=== PATIENT | female | born 1950 | race Caucasian/White ===

== ENCOUNTER 2023-03-06 16:45 | Observation (INO) ==
--- NOTE | 2023-03-06 16:53 | DR.SOBA ---
HPI Time Seen Time Seen by Provider: 03/06/23 16:52 Complaints Chief Complaint Doctors Comments: 5-year-old female presents for evaluation. Was diagnosed with pulmonary emboli 2 weeks ago. Currently on Xarelto and aspirin. Presents with exertional dyspnea over the past few days. Not coughing much. Has been running some fever and chills. Has comfort of both legs, with some swelling, not worse than usual. Did fall and hit her head few days ago. Does have a headache of the right side. No report of nausea, vomiting or diarrhea. No urinary symptoms. Does have a history of CHF in the past. Reviewed Nurses Notes Reviewed: Yes Source History Provided: Patient and Family Member PMH PMH Past Medical History: Anxiety Past Medical History Comment: h/o PEs. Past Surgical History: No (UNSURE , LONG AGO) Surgical History: Cholecystectomy and Hysterectomy Social History Does patient currently use any type of tobacco product: No Alcohol Use: None Do you use any recreational Drugs:: No ROS Review of Systems Constitutional: No Symptoms Reported Eyes: No Symptoms Reported ENTM: No Symptoms Reported Respiratoy: Short of Breath (With exertion) Cardiovascular: No Symptoms Reported Gastrointestinal/Abdominal: No Symptoms Reported Genitourinary: No Symptoms Reported Neurological: Headache Musculoskeletal: No Symptoms Reported Integumentary: No Symptoms Reported Hematologic/Lymphatic: No Symptoms Reported All Other Systems: Reviewed and Negative PE Vital Signs Vitals: Vital Signs Temperature 98.4 F Pulse Rate 85 Pulse Rate 58 Pulse Rate 127 Pulse Rate 87 Pulse Rate 54 Pulse Rate 58 Pulse Rate 66 Pulse Rate 57 Pulse Rate 58 Pulse Rate 58 Pulse Rate 101 Pulse Rate 109 Pulse Rate 55 Pulse Rate 65 Pulse Rate 60 Pulse Rate 61 Pulse Rate 63 Pulse Rate 58 Pulse Rate 58 Pulse Rate 58 Pulse Rate 58 Pulse Rate 57 Respiratory Rate 37 Respiratory Rate 26 Respiratory Rate 23 Respiratory Rate 39 Respiratory Rate 29 Respiratory Rate 27 Respiratory Rate 22 Respiratory Rate 22 Respiratory Rate 19 Respiratory Rate 22 Respiratory Rate 23 Respiratory Rate 36 Respiratory Rate 25 Respiratory Rate 21 Respiratory Rate 21 Respiratory Rate 24 Respiratory Rate 21 Respiratory Rate 25 Respiratory Rate 24 Respiratory Rate 24 Respiratory Rate 20 Blood Pressure 89/44 Blood Pressure 83/40 Blood Pressure 88/47 Blood Pressure 99/49 Blood Pressure 98/47 Blood Pressure 77/33 Blood Pressure 90/44 Blood Pressure 103/51 Blood Pressure 103/49 Blood Pressure 94/51 Blood Pressure 92/45 Blood Pressure 107/50 Blood Pressure 84/43 Blood Pressure 78/39 Blood Pressure 73/34 Blood Pressure 90/42 O2 Sat by Pulse Oximetry 99 O2 Sat by Pulse Oximetry 98 O2 Sat by Pulse Oximetry 98 O2 Sat by Pulse Oximetry 99 O2 Sat by Pulse Oximetry 99 O2 Sat by Pulse Oximetry 96 O2 Sat by Pulse Oximetry 86 O2 Sat by Pulse Oximetry 98 O2 Sat by Pulse Oximetry 99 O2 Sat by Pulse Oximetry 98 O2 Sat by Pulse Oximetry 100 O2 Sat by Pulse Oximetry 100 O2 Sat by Pulse Oximetry 97 O2 Sat by Pulse Oximetry 92 O2 Sat by Pulse Oximetry 100 O2 Sat by Pulse Oximetry 97 O2 Sat by Pulse Oximetry 99 O2 Sat by Pulse Oximetry 98 O2 Sat by Pulse Oximetry 99 O2 Sat by Pulse Oximetry 98 O2 Sat by Pulse Oximetry 96 General General Appearance: Alert and In No Apparent Distress Eyes Eye exam: PERRL and EOMI ENT ENT Exam: Mucous Membranes Moist Neck Neck Exam: Normal Inspection; negative Tenderness Respiratory Respiratory Exam: Normal Lung Sounds Bilat; negative Accessory Muscle Use or Respiratory Distress Cardiovascular Cardiovascular Exam: Regular Rate, Normal Rhythm and Normal Heart Sounds Abdominal Exam Abdominal Exam: Normal Bowel Sounds and Soft; negative Tenderness Extremities Extremities Exam: Edema (2+ bilateral lower exts); negative Tenderness Neurologic Neurological Exam: Alert, Oriented X3 and CN II-XII Intact; negative Motor Sensory Deficit Skin Skin Exam: Warm and Dry COURSE Treatment Treatment: 72-year-old female diagnosed with pulmonary emboli 2 weeks ago. Now presents with exertional dyspnea. Has a low blood pressure on arrival, currently 78/39. Given a 250 bolus of normal saline to start with. Work-up initiated. 1921 -BP improving after IV fluids, now 99/49. CBC acceptable, has mild anemia with hemoglobin 10.0. CMP overall acceptable. Her creatinine is elevated at 1.94 with a low EGFR of 27. Last creatinine here December 2021 was better at 1.08. Chest x-ray unremarkable. CT of the head and neck were acceptable as well. BNP elevated slightly at 161, troponin was negative. Patient possibly with volume depletion, in view of her higher creatinine. Recommend observation admission for further treatment of her blood pressure. Discussed with Dr. Hong, he accepts the admission for Dr. Alvarez. ROR Labs Reviewed Laboratory Results Reviewed?: Yes 03/06/23 17:10 03/06/23 17:10 Laboratory: WBC 11.8 X10^3/uL (3.6-10.0) H 03/06/23 17:10 RBC 3.34 X10^6/uL (3.5-5.4) L 03/06/23 17:10 Hgb 10.0 g/dL (12.0-16.0) L 03/06/23 17:10 Hct 31.1 % (36.0-47.0) L 03/06/23 17:10 MCV 93.1 fL (80.0-100.0) 03/06/23 17:10 MCH 30.0 pg (27.0-34.0) 03/06/23 17:10 MCHC 32.2 g/dL (33.0-35.0) L 03/06/23 17:10 RDW 15.4 % (11.6-16.5) 03/06/23 17:10 Plt Count 182 X10^3/uL (150.0-450.0) 03/06/23 17:10 MPV 10.5 fL (7.4-11.0) 03/06/23 17:10 Neut % (Auto) 69.3 % (42.0-75.0) 03/06/23 17:10 Lymph % (Auto) 19.6 % (21.0-51.0) L 03/06/23 17:10 Dickens % (Auto) 6.0 % (0.0-13.0) 03/06/23 17:10 Eos % (Auto) 4.4 % (0.9-2.9) H 03/06/23 17:10 Baso % (Auto) 0.7 % (0.2-1.0) 03/06/23 17:10 Neut # (Auto) 8.2 x10^3/uL (2.2-4.8) H 03/06/23 17:10 Lymph # (Auto) 2.3 X10^3/uL (1.3-2.9) 03/06/23 17:10 Dickens # (Auto) 0.7 x10^3/uL (0.3-0.8) 03/06/23 17:10 Eos # (Auto) 0.5 x10^3/uL (0.0-0.2) H 03/06/23 17:10 Baso # (Auto) 0.1 X10^3/uL (0.0-0.1) 03/06/23 17:10 Absolute Nucleated RBC 0.0 /100WBC 03/06/23 17:10 Sodium 140 mmol/L (136-145) 03/06/23 17:10 Corrected Sodium TNP 03/06/23 17:10 Potassium 4.3 mmol/L (3.5-5.1) 03/06/23 17:10 Chloride 109 mmol/L (98-107) H 03/06/23 17:10 Carbon Dioxide 23.0 mmol/L (21-32) 03/06/23 17:10 BUN 45 mg/dL (7-18) H 03/06/23 17:10 Creatinine 1.94 mg/dL (0.55-1.02) H 03/06/23 17:10 Est GFR (MDRD) Af Amer 32 (>60) L 03/06/23 17:10 Est GFR (MDRD) Non-Af 27 (>60) L 03/06/23 17:10 Glucose 109 mg/dL (65-99) H 03/06/23 17:10 Calcium 8.1 mg/dL (8.5-10.1) L 03/06/23 17:10 Corrected Calcium 9.0 mg/dL (8.5-10.1) 03/06/23 17:10 Magnesium 2.4 mg/dL (2.0-2.9) 03/06/23 17:10 Total Bilirubin 0.20 mg/dL (0.2-1.0) 03/06/23 17:10 AST 12 Units/L (15-37) L 03/06/23 17:10 ALT 9 Units/L (12-78) L 03/06/23 17:10 Alkaline Phosphatase 88 Units/L (46-116) 03/06/23 17:10 Troponin I High Sens 12.3 ng/L (4.0-60.0) 03/06/23 17:10 B-Natriuretic Peptide 161 pg/mL (0-79) H 03/06/23 17:10 Total Protein 6.3 g/dL (6.4-8.2) L 03/06/23 17:10 Albumin 2.9 g/dL (3.4-5.0) L 03/06/23 17:10 Globulin 3.4 g/dL (2.5-4.5) 03/06/23 17:10 Albumin/Globulin Ratio 0.9 Ratio (1.1-2.1) L 03/06/23 17:10 EKG Rate: 57 [place]: Normal Rhythm: SB ST: Normal Opioid Opioid Risk Tool Age (Ronnie box if 16-45): No History of Preadolescent Sexual Abuse: No Total: 0 Total Score Risk Category: Low Risk Copyright: Fofana LR predicting aberrant behaviors Discharge Plan Diagnosis Discharge Problem: Acute hypotension, Volume depletion Discharge Plan Patient Disposition: ADMITTED INPATIENT Condition: Stable Prescriptions: No Action furosemide 40 mg tablet 40 mg PO QDAY Xarelto 10 mg tablet 10 mg PO DAILY metformin 500 mg Tablet 500 mg PO BID potassium chloride 10 mEq Capsule, Extended Release 20 meq PO DAILY gabapentin [Neurontin] 600 mg Tablet 600 mg PO TID ibuprofen 800 mg Tablet 800 mg PO TID PRN tizanidine 4 mg tablet 4 mg PO TID PRN famotidine [Pepcid] 40 mg Tablet 40 mg PO DAILY sertraline 100 mg Tablet 100 mg PO DAILY hydrocodone-acetaminophen 10-325 mg tablet 1 tab PO TID PRN ropinirole 0.25 mg Tablet 0.25 mg PO DAILY metoprolol succinate 25 mg Tablet Extended Release 24 Hr 25 mg PO BID lorazepam 1 mg Tablet 1 mg PO BID PRN fluticasone propionate 50 mcg/actuation spray,suspension 1 spray INTRANASAL DAILY Rx Instructions: each nostril prn loratadine 10 mg Tablet 10 mg PO DAILY cholecalciferol (vitamin D3) [Vitamin D3] 125 mcg (5,000 unit) Tablet 5,000 mcg PO DAILY Entresto 49-51 mg Tablet 49 - 51 tab PO BID aspirin [Ecotrin Low Strength] 81 mg Tablet,Delayed Release (Dr/Ec) 81 mg PO QDAY Qty: 30 3RF Rx Instructions: TAKE ONE TABLET DAILY rosuvastatin 10 mg Tablet 10 mg PO HS Qty: 30 3RF Rx Instructions: TAKE ONE TABLET AT BEDTIME Health Concerns: Post Hospitalization: new medications and changes needed to prevent readmission or further decline. Pt educated and given instructions on all concerns. Plan of Treatment: Continue with present treatment and follow up plan. Pt is to keep follow up appointment as instructed and take medications as ordered. Orders to Discharge Patient Discharge Orders: Transfer (Routine); Ordered 03/06/23 Ordered By: Fabian Pal Follow ups/Referrals Follow ups/Referrals: Maksim Alvarez [Primary Care Provider] - 3 days
--- NOTE | 2023-03-06 17:02 | EKG ---
Test Reason : CHEST PAIN Blood Pressure : */* mmHG Vent. Rate : 57 BPM Atrial Rate : 57 BPM P-R Int : 142 ms QRS Dur : 78 ms QT Int : 392 ms P-R-T Axes : 34 6 12 degrees QTc Int : 381 ms Sinus bradycardia Cannot rule out Anterior infarct (cited on or before 24-JAN-2023) Abnormal ECG When compared with ECG of 24-JAN-2023 18:07, Borderline criteria for Inferior infarct are no longer present Confirmed by Scar Richardson ([id number]) on 03/07/2023 12:59:19 PM Referred By: Confirmed By: Scar Richardson
[2023-03-06] MEDS ORDERED: NS 250 ML IV 250 ML IV ONE ×2 (17:13→17:18)
[2023-03-06 17:22] LABS: BASOPHILS # (AUTO) 0.1 X10^3/uL (0.0-0.1); BASOPHILS % (AUTO) 0.7 % (0.2-1.0); EOSINOPHILS # (AUTO) 0.5 x10^3/uL (0.0-0.2); EOSINOPHILS % (AUTO) 4.4 % (0.9-2.9); HEMATOCRIT 31.1 % (36.0-47.0); LYMPHOCYTES # (AUTO) 2.3 X10^3/uL (1.3-2.9); LYMPHOCYTES % (AUTO) 19.6 % (21.0-51.0); MEAN CORPUSCULAR HGB CONC 32.2 g/dL (33.0-35.0); MEAN CORPUSCULAR VOLUME 93.1 fL (80.0-100.0); MEAN PLATELET VOLUME 10.5 fL (7.4-11.0); MONOCYTES # (AUTO) 0.7 x10^3/uL (0.3-0.8); NEUTROPHILS # (AUTO) 8.2 x10^3/uL (2.2-4.8); NEUTROPHILS % (AUTO) 69.3 % (42.0-75.0); PLATELET COUNT 182 X10^3/uL (150.0-450.0); RED BLOOD COUNT 3.34 X10^6/uL (3.5-5.4); RED CELL DISTRIBUTION WIDTH 15.4 % (11.6-16.5); WHITE BLOOD COUNT 11.8 X10^3/uL (3.6-10.0)
[2023-03-06 17:38] LABS: ALANINE AMINOTRANSFERASE 9 Units/L (12-78); ALBUMIN 2.9 g/dL (3.4-5.0); ALKALINE PHOSPHATASE 88 Units/L (46-116); ASPARTATE AMINO TRANSFERASE 12 Units/L (15-37); BLOOD UREA NITROGEN 45 mg/dL (7-18); CALCIUM 8.1 mg/dL (8.5-10.1); CHLORIDE 109 mmol/L (98-107); CREATININE 1.94 mg/dL (0.55-1.02); GLUCOSE 109 mg/dL (65-99); MAGNESIUM 2.4 mg/dL (2.0-2.9); POTASSIUM 4.3 mmol/L (3.5-5.1); SODIUM 140 mmol/L (136-145); TOTAL PROTEIN 6.3 g/dL (6.4-8.2); eGFR NON BLACK RACES 27 (>60)
--- NOTE | 2023-03-06 18:03 | CT ---
EXAM: HEAD CT WITHOUT INTRAVENOUS CONTRASTHISTORY: Traumatic fall head injury 2 days ago.TECHNIQUE: Spiral axial CT images are obtained through the brain without the administration of intravenous contrast. 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 There is a small stable right inferior cerebellar parenchymal infarction. Severe atherosclerosis of the intracranial ICAs and vertebral arteries is seen. Consider follow-up MRA as clinically warranted.There are extensive patchy patchy parenchymal lucencies seen throughout the white matter tracts of the centrum semiovale, consistent with chronic sequela of atherosclerotic microvascular ischemic disease. Please note that small or subtle acute infarction can be obscured in this radiologic setting. Consider followup MRI with diffusion weighted imaging if clinically warranted. There is no gross acute territorial infarction seen.There is severe diffuse cerebral cortical atrophy, in keeping with the patient's advanced age. There is no intra-axial or extra-axial hemorrhage seen. No intra-axial or extra-axial mass lesions are noted. There is no hydrocephalus. There is no midline shift or other mass effect seen. The calvarium is intact. The partially imaged paranasal sinuses, middle ear cavities and mastoid air cells are clear.IMPRESSION:1. No skull fracture or acute intracranial hemorrhage seen.2. Extensive chronic microvascular ischemic disease throughout the centrum semiovale; no discernible acute infarction seen; note, small or subtle acute infarctions can be obscured in this radiologic setting. Consider followup MRI with DWI/ADC imaging as clinically warranted.3. Severe atherosclerosis of the intracranial ICAs and vertebral arteries is seen. Consider follow-up MRA as clinically warranted.4. Severe diffuse cerebral cortical atrophy.THIS IS AN ELECTRONICALLY VERIFIED FINAL NYQIAP4303/06/2023 6:00 PM - Electronically signed by Robby Ye
--- NOTE | 2023-03-06 18:16 | CT ---
HISTORYpt c/o of neck painSTUDYCERVICAL SPINE W/O CONCOMPARISONTECHNIQUEMultiple axial images of the cervical spine were obtained from the skull base to the thoracic inlet without administration of IV contrast. Sagittal and coronal reformats were performed and reviewed. Dose reduction techniques including Automated Exposure Control (AEC) and adjustment of mA and kV were utilized.FINDINGSAlignment of the cervical spine is maintained. No evidence for acute cortical disruption or subluxation can be seen. The central canal remains free of compromise from bony fragments or significant soft tissue encroachment. The posterior elements appear unremarkable. The prevertebral soft tissues are normal in their appearance. In addition, the surrounding paraspinous soft tissues are unremarkable.Moderate degenerative changes of the cervical spine are incidentally noted.IMPRESSIONNo evidence for traumatic injury of the cervical spine.Electronically signed by: Juliano Meek (Mar 06, 2023 18:14:58)
--- NOTE | 2023-03-06 18:18 | RAD ---
EXAM:CHEST, 1 VIEWHISTORY:PE 2 weeks ago. 2 days ago pt suddenly developed SOB w/ exertion. Anytime she moves she can barely catch her breath. Denies any chest pain.; ; Pt did have a fall 2 days ago, fell backwards and hit her head. Denies LOC, c/o right sided headache and chronic pain in kaylie. lower ext.COMPARISON:January 24TECHNIQUE:AP portable chest radiographFINDINGS:Severe cardiomegaly. No pulmonary edema or consolidating infiltrates. Pleural spaces remain clear. No radiographic evidence of pneumothorax or free air below the diaphragm. No acute osseous abnormalities of the chest are observed.IMPRESSION:Severe cardiomegaly without pulmonary edema or acute infiltrates.THIS IS AN ELECTRONICALLY VERIFIED FINAL [id number]/06/2023 6:15 PM - Electronically signed by Basil Grant MD
[2023-03-06] MEDS ORDERED: TYLENOL 500 MG TAB EXTRA STRENGTH PO PRN (20:48)
[2023-03-06] MEDS ORDERED: ATIVAN TAB 1 MG PO PRN (20:48)
[2023-03-06 21:06] VITALS: BMI 29.6
[2023-03-06] MEDS ORDERED: GLUCOPHAGE ONE (21:35)
[2023-03-06] MEDS: GLUCOPHAGE PO SCH (21:44)
[2023-03-06] MEDS: CRESTOR TAB 10 MG PO SCH (21:44)
[2023-03-06] MEDS: NEURONTIN TAB 600 MG PO SCH (21:44)
[2023-03-06] MEDS: D5 NS 1,000 ML IV 1,000 ML IV SCH (21:44)
[2023-03-06 22:19] LABS: BILIRUBIN,URINE NEGATIVE (NEGATIVE); BLOOD/HEMOGLOBIN,URINE NEGATIVE (NEGATIVE); GLUCOSE, URINE NEGATIVE (NEGATIVE); KETONES,URINE NEGATIVE (NEGATIVE); LEUKOCYTE ESTERASE ,URINE 1+ (NEGATIVE); NITRITES,URINE NEGATIVE (NEGATIVE); PROTEIN,URINE 1+ (NEGATIVE); UROBILINOGEN,URINE NORMAL (NORMAL)
[2023-03-06 22:20] LABS: APPEARANCE,URINE CLEAR (CLEAR); COLOR,URINE YELLOW (YELLOW)
[2023-03-06 22:30] LABS: BACTERIA,URINE TRACE /HPF (NEGATIVE); HYALINE CASTS, URINE MODERATE /LPF (NEGATIVE); RBC,URINE 0-2 /HPF (0-3); SQUAMOUS EPITHELIAL CELL,UR MODERATE /HPF (NEGATIVE)
[2023-03-07] MEDS: NEURONTIN TAB 600 MG PO SCH ×3 (05:05→21:25)
[2023-03-07 05:24] LABS: BASOPHILS # (AUTO) 0.1 X10^3/uL (0.0-0.1); BASOPHILS % (AUTO) 0.5 % (0.2-1.0); EOSINOPHILS # (AUTO) 0.7 x10^3/uL (0.0-0.2); EOSINOPHILS % (AUTO) 4.9 % (0.9-2.9); HEMATOCRIT 30.5 % (36.0-47.0); HEMOGLOBIN 9.9 g/dL (12.0-16.0); LYMPHOCYTES # (AUTO) 1.9 X10^3/uL (1.3-2.9); LYMPHOCYTES % (AUTO) 14.3 % (21.0-51.0); MEAN CORPUSCULAR HEMOGLOBIN 30.3 pg (27.0-34.0); MEAN CORPUSCULAR HGB CONC 32.6 g/dL (33.0-35.0); MEAN CORPUSCULAR VOLUME 92.8 fL (80.0-100.0); MEAN PLATELET VOLUME 11.2 fL (7.4-11.0); MONOCYTES # (AUTO) 0.7 x10^3/uL (0.3-0.8); MONOCYTES % (AUTO) 5.4 % (0.0-13.0); NEUTROPHILS % (AUTO) 74.9 % (42.0-75.0); PLATELET COUNT 168 X10^3/uL (150.0-450.0); RED BLOOD COUNT 3.28 X10^6/uL (3.5-5.4); RED CELL DISTRIBUTION WIDTH 15.4 % (11.6-16.5); WHITE BLOOD COUNT 13.4 X10^3/uL (3.6-10.0)
[2023-03-07 05:46] LABS: ALANINE AMINOTRANSFERASE 6 Units/L (12-78); ALBUMIN 2.4 g/dL (3.4-5.0); ALKALINE PHOSPHATASE 82 Units/L (46-116); ASPARTATE AMINO TRANSFERASE 12 Units/L (15-37); BLOOD UREA NITROGEN 41 mg/dL (7-18); CALCIUM 7.5 mg/dL (8.5-10.1); CARBON DIOXIDE 19.9 mmol/L (21-32); CHLORIDE 111 mmol/L (98-107); COR CA(FOR HYPOALB) 8.8 mg/dL (8.5-10.1); CREATININE 1.43 mg/dL (0.55-1.02); GLUCOSE 94 mg/dL (65-99); POTASSIUM 3.8 mmol/L (3.5-5.1); SODIUM 141 mmol/L (136-145); TOTAL PROTEIN 5.5 g/dL (6.4-8.2); eGFR NON BLACK RACES 38 (>60)
[2023-03-07] MEDS ORDERED: GLUCOPHAGE ONE (09:22)
[2023-03-07] MEDS ORDERED: ZOLOFT ONE (09:22)
[2023-03-07] MEDS: REQUIP PO SCH (09:34)
[2023-03-07] MEDS: GLUCOPHAGE PO SCH (09:34)
[2023-03-07] MEDS: CLARITIN PO SCH (09:36)
[2023-03-07] MEDS: ZOLOFT PO SCH (09:36)
[2023-03-07] MEDS: XARELTO PO SCH (09:36)
[2023-03-07] MEDS: PEPCID TAB 40 MG PO SCH (09:36)
[2023-03-07] MEDS: VITAMIN D3 125 mcg (5,000 UNITS) PO SCH (09:47)
[2023-03-07] MEDS: D5 NS 1,000 ML IV 1,000 ML IV SCH ×2 (10:07→22:54)
[2023-03-07] MEDS ORDERED: ROBITUSSIN DM PO PRN (16:15)
[2023-03-07] MEDS: CRESTOR TAB 10 MG PO SCH (21:25)
[2023-03-08] MEDS: D5 NS 1,000 ML IV 1,000 ML IV SCH ×2 (05:20→12:25)
[2023-03-08] MEDS: NEURONTIN TAB 600 MG PO SCH ×2 (05:23→13:57)
[2023-03-08 05:28] LABS: BASOPHILS # (AUTO) 0.1 X10^3/uL (0.0-0.1); BASOPHILS % (AUTO) 0.7 % (0.2-1.0); EOSINOPHILS # (AUTO) 0.5 x10^3/uL (0.0-0.2); EOSINOPHILS % (AUTO) 6.4 % (0.9-2.9); HEMATOCRIT 27.2 % (36.0-47.0); HEMOGLOBIN 8.9 g/dL (12.0-16.0); LYMPHOCYTES # (AUTO) 2.2 X10^3/uL (1.3-2.9); LYMPHOCYTES % (AUTO) 25.4 % (21.0-51.0); MEAN CORPUSCULAR HEMOGLOBIN 30.4 pg (27.0-34.0); MEAN CORPUSCULAR HGB CONC 32.7 g/dL (33.0-35.0); MEAN PLATELET VOLUME 10.7 fL (7.4-11.0); MONOCYTES # (AUTO) 0.9 x10^3/uL (0.3-0.8); MONOCYTES % (AUTO) 10.7 % (0.0-13.0); NEUTROPHILS # (AUTO) 4.8 x10^3/uL (2.2-4.8); NEUTROPHILS % (AUTO) 56.8 % (42.0-75.0); PLATELET COUNT 149 X10^3/uL (150.0-450.0); RED BLOOD COUNT 2.92 X10^6/uL (3.5-5.4); RED CELL DISTRIBUTION WIDTH 15.4 % (11.6-16.5); WHITE BLOOD COUNT 8.5 X10^3/uL (3.6-10.0)
[2023-03-08 05:42] LABS: ALANINE AMINOTRANSFERASE 7 Units/L (12-78); ALKALINE PHOSPHATASE 74 Units/L (46-116); ASPARTATE AMINO TRANSFERASE 19 Units/L (15-37); BLOOD UREA NITROGEN 27 mg/dL (7-18); CALCIUM 7.2 mg/dL (8.5-10.1); CARBON DIOXIDE 21.4 mmol/L (21-32); CHLORIDE 114 mmol/L (98-107); COR CA(FOR HYPOALB) 8.8 mg/dL (8.5-10.1); CREATININE 0.95 mg/dL (0.55-1.02); GLUCOSE 94 mg/dL (65-99); POTASSIUM 3.8 mmol/L (3.5-5.1); SODIUM 141 mmol/L (136-145); eGFR NON BLACK RACES > 60 (>60)
[2023-03-08] MEDS ORDERED: CONSULT PHARMACY - POTASSIUM & MAGNESIUM XX SCH (07:00)
[2023-03-08] MEDS ORDERED: ZOLOFT ONE (08:38)
[2023-03-08] MEDS ORDERED: K-DUR TAB 20 MEQ PO SCH (09:00)
[2023-03-08] MEDS ORDERED: NS 100 ML IV 100 ML ONE (09:11)
[2023-03-08] MEDS ORDERED: OMNIPAQUE 350 mg/mL 100 mL BTL 100 ML ONE (09:11)
[2023-03-08] MEDS: REQUIP PO SCH (09:15)
[2023-03-08] MEDS: ZOLOFT PO SCH (09:16)
[2023-03-08] MEDS: PEPCID TAB 40 MG PO SCH (09:16)
[2023-03-08] MEDS: CLARITIN PO SCH (09:16)
[2023-03-08] MEDS: XARELTO PO SCH (09:16)
[2023-03-08] MEDS: VITAMIN D3 125 mcg (5,000 UNITS) PO SCH (09:20)
[2023-03-08 10:32] VITALS: TEMP 97.5
--- NOTE | 2023-03-08 10:39 | CT ---
EXAM:CTA, CHESTHISTORY:Recent PE, persistent shortness of breathTECHNIQUE:Axial postcontrast images with coronal and sagittal reformats. Three-dimensional maximum intensity projection images were obtained and evaluated. Dose reduction techniques were used with MA/kv adjusted for body size.COMPARISON:01/25/2023FINDINGS:There is no definite evidence for acute pulmonary thromboembolic disease. Examination of the mediastinum demonstrated no evidence for mediastinal masses, and large mediastinal or enlarged hilar adenopathy or significant aortic abnormality. Redemonstrated is the patient's pericardial effusion demonstrating a maximum width of 2 cm. There has been a slight increase in the pericardial effusion since the prior examination. Trace right pleural effusion is present. No chest wall or axillary abnormalities identified. Those portions of the upper abdominal organs visualized appeared within normal limits to the limitations of early arterial there is a 2 cm low-attenuation right renal mass present most likely a cyst however this should be confirmed with renal sonography. Examination of the lung murcia again demonstrated an area of pleural-based parenchymal density in the right mid hemithorax decreasing in size when compared with prior examination. Continued CT follow-up is recommended in order to confirm complete resolution of this finding. There is some subsegmental atelectasis in the right lung base. No definite nodules, alveolar infiltrates, areas of consolidation, peribronchial thickening, or bronchiectasis identified.IMPRESSION:No evidence for acute pulmonary thromboembolic [id number] but increasing pericardial effusion as described abovePleural-based density in the right lower lobe decreased in size when compared with the prior examination. Continued close CT follow-up is recommended to confirm complete resolution.THIS IS AN ELECTRONICALLY VERIFIED FINAL [id number]/08/2023 10:36 AM - Electronically signed by Js More MD
--- NOTE | 2023-03-08 11:50 | DR.H&P ---
H&P - History & Physical for Day of: H&P Date: 03/06/23 - Chief Complaint Chief Complaint: SHORTNESS OF BREATH - History of Present Illness History of Present Illness: IS A 72 YEAR OLD PATIENT OF OURS. SHE PRESENTED TO THE ER WITH COMPLAINTS OF WORSENING EXERTIONAL DYSPNEA FOR THE PAST 2-3 DAYS. SHE ALSO REPORTS SOME FEVER, CHILLS, LOWER EXTREMITY SWELLING, AND DISCOMFORT. SHE ADMITS TO FALLING A FEW DAYS AGO AND HITTING HER HEAD, BUT DENIES HEADACHE, LOC, NAUSEA, VOMITING, DIARRHEA, COUGH, OR URINARY SX. SHE WAS DIAGNOSED WITH A PULMONARY EMBOLI TWO WEEKS AGO. SHE WAS STARTED ON XARELTO AT THAT TIME. HER PMH INCLUDES CHF, HTN, ANXIETY, DM II, ALLERGIC RHINITIS, GERD, DEPRESSION, RESTLESS LEGS, HYPERLIPIDEMIA, HYSTERECTOMY, AND CHOLECYSTECTOMY. EXAMINATION REVEALED DIMINISHED LUNG SOUNDS AND 2+ EDEMA OF BILATERAL LOWER EXT REMITIES. ON ARRIVAL TO THE HOSPITAL, VITALS WERE: 98.4-57-20-96%-90/42. LABS WERE OBTAINED. WBC 11.8, RBC 3.34, HGB 10.0, HCT 31.1, PLT COUNT 182, SODIUM 140, POTASSIUM 4.3, CHLORIDE 109, CARBON DIOXIDE 23.0, BUN 45, CREATININE 1.94, GLUCOSE 109, CALCIUM 8.1, MAGNESIUM 2.4, TOTAL BILI 0.20, AST 12, ALT 9, ALK PHOS 88, TROPONIN 12.3, BNP 161, TOTAL PROTEIN 6.3, ALBUMIN 2.9. A URINALYSIS WAS OBTAINED AND REVEALED: WBC 3-5, RBC 0-2, LEUKOCYTES 1+, BACTERIA TRACE. EKG REVEALED: SINUS BRADYCARDIA WITH HR 57 BPM. CHEST XRAY WAS OBTAINED AND REVEALED: Severe cardiomegaly without pulmonary edema or acute infiltrates. 1. No skull fracture or acute intracranial hemorrhage seen. 2. Extensive chronic microvascular ischemic disease throughout the centrum semiovale; no discernible acute infarction seen; note, small or subtle acute infarctions can be obscured in this radiologic setting. Consider followup MRI with DWI/ADC imaging as clinically warranted. 3. Severe atherosclerosis of the intracranial ICAs and vertebral arteries is seen. Consider follow-up MRA as clinically warranted. 4. Severe diffuse cerebral cortical atrophy. A CERVICAL SPINE CT WAS OBTAINED AND REVEALED: No evidence for traumatic injury of the cervical spine. IN THE ER, SHE WAS GIVEN A NORMAL SALINE BOLUS. DECISION WAS MADE TO ADMIT TODD TO THE HOSPITAL OBSERVATION STATUS FOR FURTHER EVALUATION AND TREATMENT OF ACUTE HYPOTENSION, DEHYDRATION, SHORTNESS OF BREATH. SHE WAS STARTED ON D5NS AT 80 ML/HR AND TYLENOL 1000MG Q6H PRN. HER HOME MEDICATIONS OF VITAMIN D3, PEPCID, NEURONTIN, CLARITIN, ATIVAN, XARELTO, REQUIP, CRESTOR, AND ZOLOFT WERE RESUMED. WE PLAN TO OBTAIN A CHEST CTA AND BILATERAL LOWER EXTREMITY VENOUS DOPPLERS. OTHERWISE, WE WILL FOLLOW UP WITH AM LABS AND CONTINUE TO MONITOR. TIME SPENT ON CLINICAL ASSESSMENT, REVIEWING LABS AND IMAGING, DECISION MAKING, AND DOCUMENTATION GREATER THAN 75 MINUTES. - Past Medical History Past Medical History: Anemia, Anxiety, CHF, COPD, Coronary Artery Disease, CVA, Depression, Diabetes, Dyslipidemia, GERD, Hypertension, DE - Past Surgical History Surgical History: Appendectomy, Cholecystectomy, Hysterectomy - Family History Family Medical History: Diabetes Mellitus, DE, Coronary Artery Disease - Social History Does patient currently use any type of tobacco product: No Have you used tobacco products in the last 12 months: No Type of Tobacco Use: None Does any household member use tobacco: No Alcohol Use: None Drug Use: None - Review of Systems Constitutional: Weakness Eyes: No Symptoms Reported ENT: No Symptoms Reported Respiratory: See HPI, Shortness of Breath, SOB with Excertion Cardiovascular: Edema (2+ EDEMA BILATERAL LOWER EXTREMITIES ) Gastrointestinal: No Symptoms Reported Genitourinary: No Symptoms Reported Musculoskeletal: Leg Pain Skin: No Symptoms Reported Neurological: Weakness - Physical Exam Vital Signs: Vital Signs Temperature 97.5 F Temperature 98.9 F Pulse Rate 84 Pulse Rate 64 Pulse Rate 66 Pulse Rate 67 Pulse Rate 71 Pulse Rate 67 Pulse Rate 65 Pulse Rate 66 Respiratory Rate 26 Respiratory Rate 20 Respiratory Rate 19 Respiratory Rate 19 Respiratory Rate 18 Respiratory Rate 19 Respiratory Rate 17 Respiratory Rate 18 Blood Pressure 123/59 Blood Pressure 116/60 Blood Pressure 124/59 Blood Pressure 135/63 Blood Pressure 135/63 Blood Pressure 113/58 Blood Pressure 102/52 Blood Pressure 101/57 O2 Sat by Pulse Oximetry 100 O2 Sat by Pulse Oximetry 99 O2 Sat by Pulse Oximetry 98 O2 Sat by Pulse Oximetry 98 O2 Sat by Pulse Oximetry 99 O2 Sat by Pulse Oximetry 96 O2 Sat by Pulse Oximetry 95 O2 Sat by Pulse Oximetry 95 Oriented: Normal Eyes: Normal Ear: Normal Nose: Normal Throat: Normal Respiratory: Diminished Throughout Cardiovascular: Bradycardia : Normal Auscultation: Bowel Sounds: Normal Palpation: Normal Tenderness: Normal Skin: Normal Musculoskeletal: Normal Psychiatric: Normal Mood Description: Calm Affect: Normal Speech Pattern: Clear - Assessment/Plan (1) Dehydration Status: Acute Plan: ADMIT, D5NS AT 80 ML/HR AND TYLENOL 1000MG Q6H PRN. HER HOME MEDICATIONS OF VITAMIN D3, PEPCID, NEURONTIN, CLARITIN, ATIVAN, XARELTO, REQUIP, CRESTOR, AND ZOLOFT WERE RESUMED. OBTAIN CHEST CTA AND LOWER EXTREMITY VENOUS DOPPLER (2) Acute hypotension Status: Acute (3) Shortness of breath Status: Acute (4) Lower extremity edema Status: Acute (5) Pulmonary embolism Qualifiers: Pulmonary embolism type: unspecified Chronicity: acute Acute cor pulmonale presence: without acute cor pulmonale Qualified Code(s): I26.99 - Other pulmonary embolism without acute cor pulmonale Status: Acute (6) DM (diabetes mellitus) Qualifiers: Diabetes mellitus type: type 2 Diabetes mellitus buttermilk drier operator insulin use: with buttermilk drier operator use Diabetes mellitus complication status: with hyperglycemia Qualified Code(s): E11.65 - Type 2 diabetes mellitus with hyperglycemia; Z79.4 - care home (current) use of insulin Status: Chronic Plan: HOLD METFORMIN DUE TO CTA (7) CHF (congestive heart failure) Qualifiers: Heart failure type: unspecified Heart failure chronicity: chronic Qualified Code(s): I50.9 - Heart failure, unspecified Status: Chronic Plan: CONTINUE TO MONITOR (8) GERD (gastroesophageal reflux disease) Qualifiers: Esophagitis presence: esophagitis presence not specified Qualified Code(s): K21.9 - Gastro-esophageal reflux disease without esophagitis Status: Chronic Plan: RESUME PEPCID (9) Anxiety and depression Status: Chronic (10) RLS (restless legs syndrome) Status: Chronic Plan: RESUME REQUIP (11) Hyperlipemia Qualifiers: Hyperlipidemia type: mixed hyperlipidemia Qualified Code(s): E78.2 - Mixed hyperlipidemia Status: Chronic Plan: RESUME CRESTOR - Allergies Allergies/Adverse Reactions: Allergies Allergy/AdvReac Type Severity Reaction Status Date / Time oxytetracycline AdvReac Verified 03/06/23 18:55 [From Terramycin] - Medications Home Medications: Home Medications Medication Instructions Recorded Confirmed cholecalciferol (vitamin D3) 125 5,000 mcg PO DAILY 01/24/23 03/06/23 mcg (5,000 unit) tablet (Vitamin D3) famotidine 40 mg tablet (Pepcid) 40 mg PO DAILY 01/24/23 03/06/23 fluticasone propionate 50 1 spray intranasal DAILY 01/24/23 03/06/23 mcg/actuation nasal spray,suspension gabapentin 600 mg tablet 600 mg PO TID 01/24/23 03/06/23 (Neurontin) hydrocodone 10 mg-acetaminophen 1 tab PO TID PRN 01/24/23 03/06/23 325 mg tablet ibuprofen 800 mg tablet 800 mg PO TID PRN 01/24/23 03/06/23 loratadine 10 mg tablet 10 mg PO DAILY 01/24/23 03/06/23 lorazepam 1 mg tablet 1 mg PO BID PRN 01/24/23 03/06/23 metformin 500 mg tablet 500 mg PO BID 01/24/23 03/06/23 metoprolol succinate 25 mg 25 mg PO BID 01/24/23 03/06/23 tablet,extended release 24 hr potassium chloride 10 mEq 20 meq PO DAILY 01/24/23 03/06/23 capsule,extended release ropinirole 0.25 mg tablet 0.25 mg PO DAILY 01/24/23 03/06/23 sacubitril 49 mg-valsartan 51 mg 49 - 51 tab PO BID 01/24/23 03/06/23 tablet (Entresto) sertraline 100 mg tablet 100 mg PO DAILY 01/24/23 03/06/23 tizanidine 4 mg tablet 4 mg PO TID PRN 01/24/23 03/06/23 furosemide 40 mg tablet 40 mg PO QDAY 03/06/23 03/06/23 rivaroxaban 10 mg tablet (Xarelto) 10 mg PO DAILY 03/06/23 03/06/23 Previous Rx's Medication Instructions Recorded aspirin 81 mg tablet,delayed 81 mg PO QDAY #30 tabs 01/26/23 release (Ecotrin Low Strength) rosuvastatin 10 mg tablet 10 mg PO HS #30 tabs 01/26/23 levofloxacin 500 mg tablet 500 mg PO QDAY #10 tabs 03/08/23
--- NOTE | 2023-03-08 13:23 | VAS ---
EXAM:LOWER EXT VENOUS, BILATERALHISTORY:b/l leg pain and edema; evaluate for venous thrombosisCOMPARISON:NoneTECHNIQUE:33 images made by the sack filler. Dias scale and color flow Doppler images of the right and left lower extremity deep venous system were obtained.FINDINGS:There was normal compressibility and flow characteristics from the common femoral vein to the popliteal vein. No evidence of deep venous thrombosis.Proximal profunda femoral vein was patent with no thrombus.Proximal greater saphenous vein was patent with no superficial thrombophlebitis.IMPRESSION:1. No lower extremity venous thrombosisTHIS IS AN ELECTRONICALLY VERIFIED FINAL [id number]/08/2023 1:20 PM - Electronically signed by Jayce Clements MD
[2023-03-08 14:34] VITALS: BP 140/70; PULSE 71; RESP 20; O2SAT 98
[2023-03-09] MEDS ORDERED: VITAMIN D3 125 mcg (5,000 UNITS) PO SCH (09:00)
== END 2023-03-08 14:30 | disposition home health service (06) ==
LOC: ER 16:45 → ICU 16:45
PROVIDERS: ADMIT Family Medicine; ATTEND Internal Medicine
DX: E11.65 Type 2 diabetes mellitus with hyperglycemia; E86.0 Dehydration; K21.9 Gastro-esophageal reflux disease without esophagitis; I26.99 Other pulmonary embolism without acute cor pulmonale; I25.10 Atherosclerotic heart disease of native coronary artery without angina pectoris; E78.2 Mixed hyperlipidemia; I50.9 Heart failure, unspecified; R60.0 Localized edema; M54.2 Cervicalgia; Z91.81 History of falling; I11.0 Hypertensive heart disease with heart failure; J44.9 Chronic obstructive pulmonary disease, unspecified; R06.02 Shortness of breath; I95.89 Other hypotension; Z79.4 Long term (current) use of insulin; F41.8 Other specified anxiety disorders; R51.9 Headache, unspecified; G25.81 Restless legs syndrome